=== PATIENT | female | born 1990 | race Caucasian/White ===

== ENCOUNTER 2017-01-09 07:57 | Inpatient (IN) | payer MEDICAID ==
[~2017-01-09] VITALS: Ht 160 cm; Wt 60.0 kg
[2017-01-09 08:04] VITALS: Ht 160 cm; Wt 60.0 kg
[2017-01-09 08:27] VITALS: BP 102/68; PULSE 81; RESP 16
[2017-01-09] MEDS ORDERED: LIDOCAINE 1% (MPF) 30 ML INJ INJ PRN (08:30)
[2017-01-09] MEDS ORDERED: OXYTOCIN 30 UNITS/LR 500 ML IV PRN (08:30)
[2017-01-09] MEDS ORDERED: IBUPROFEN 600 MG TAB PO PRN (08:30)
[2017-01-09] MEDS ORDERED: CARBOPROST 250 MCG INJ IM PRN (08:30)
[2017-01-09] MEDS ORDERED: MISOPROSTOL 200 MCG TAB PR PRN (08:30)
[2017-01-09] MEDS ORDERED: OXYTOCIN 30 UNITS/LR 500 ML IV SCH (08:30)
[2017-01-09] MEDS ORDERED: METHYLERGONOVINE 0.2 MG INJ IM PRN (08:30)
[2017-01-09] MEDS ORDERED: BUTORPHANOL 2 MG INJ IV PRN (08:30)
[2017-01-09] MEDS: LACTATED RINGER'S 1,000 ML IV SCH ×3 (08:32→20:55)
[2017-01-09] MEDS ORDERED: DINOPROSTONE 10 MG VAG SUPP VAG ONE (09:30)
[2017-01-09 09:45] LABS: ADD SCAN DIFF NO
[2017-01-09 09:53] LABS: BASOPHILS % 0.5 % (0.0-2.0); EOSINOPHILS # 0.1 10^3/ul (0.0-0.5); EOSINOPHILS % 0.8 % (0.0-7.0); HEMATOCRIT 39.8 % (37.0-47.0); HEMOGLOBIN 13.2 g/dl (12.0-16.0); LYMPHOCYTES # 1.5 10^3/ul (0.8-2.9); LYMPHOCYTES % 19.2 % (15.0-51.0); MEAN CORPUSCULAR HEMOGLOBIN 31.5 pg (29.0-33.0); MEAN CORPUSCULAR HGB CONC 33.2 g/dl (32.0-37.0); MEAN PLATELET VOLUME 13.1 fl (7.4-10.4); MONOCYTE # 0.5 10^3/ul (0.3-0.9); MONOCYTES % 5.7 % (0.0-11.0); NEUTROPHIL # 5.8 10^3/ul (1.6-7.5); NEUTROPHILS % 73.3 % (39.0-77.0); PLATELET COUNT 111 10^3/UL (140-415); RED BLOOD COUNT 4.19 10^6/ul (4.20-5.40); RED CELL DISTRIBUTION WIDTH 12.6 % (11.5-14.5); WHITE BLOOD COUNT 7.9 10^3/ul (4.8-10.8)
[2017-01-09] MEDS ORDERED: LACTATED RINGER'S 1,000 ML IV PRN (10:00)
[2017-01-09 10:07] LABS: INR 0.91; PROTIME 12.3 Sec (12.2-14.2)
[2017-01-09 10:08] LABS: PARTIAL THROMBOPLASTIN TIME 27.2 Sec (25.0-35.0)
--- NOTE | 2017-01-09 19:56 | HP ---
Date/Time of Note Date/Time of Note DATE: 01/09/17 TIME: 19:54 OB - History Hx of Present Free Text/Dictation admitted for induction of the labor at term Last Menstrual Period: Mar 31, 2017 Estimated Due Date: Jan 07, 2017 : 3 Para: 2 Care: Good Care Past Family/Social History * Past Medical, Surgical, Family and Obstetric Histories reviewed from chart. Blood Type: O+ Rubella: immune RPR/VDRL: Negative GBS Status: Negative HBsAG: Negative OB Admission Exam Vital Signs Vital Signs Vital Signs Date Time Temp Pulse Resp B/P Pulse Ox O2 Delivery O2 Flow Rate FiO2 01/09/17 08:27 98.2 81 16 102/68 Room Air Physical Exam HEENT: WNL Heart: Rhythm Normal Lungs: Clear, Equal Abdomen: WNL Extremities: Normal Reflexes: Normal Cervical Dilatation: None Effacement: 0% Station: -3 Membranes: Intact Heart Rate: 130's Accelerations: Accelerations Present Decelerations: No Decelerations Varibility: Moderate Contractions on Admission: None Last 72 hours Lab Results CBC & BMP 01/09/17 08:40 OB Assessment/Plan Reason for admission: induction of labor Other Assessment: term gestation Induction Method: per Misoprostol Protocol JULES FRANCES MD Jan 09, 2017 19:56
[2017-01-09] MEDS ORDERED: MINERAL OIL LIGHT 10 ML VIAL TOP ONE (20:00)
[2017-01-09] MEDS: OXYTOCIN 30 UNITS/LR 500 ML IV SCH ×2 (23:43→23:58)
--- NOTE | 2017-01-09 23:55 | LDN ---
Date/Time of Note Date/Time of Note DATE: 01/09/17 TIME: 23:51 Delivery Summary of a viable infan over intact perineum( done by Dr Amador) Weeks of Gestation 39+ Placenta Delivered: Spontaneously, Intact & Complete Meconium: none Episiotomy: No Anesthesia type: None Estimated blood loss: 100 Sponge & Needle done & correct: Yes All needle counts correct: Yes Any foreign bodies felt in the: No Problems: Infant Delivery Information Sex Sex: female Apgars 1 Minute: 9 5 Minute: 9 Suctioning Nose & mouth suctioned at loli: Yes Delee suction performed: Yes Umbilical Cord Umbilical cord with: 3 Vessels Cord presentations: no nuchal cord Cord Blood was obtained: Yes Mother & Baby Disposition Disposition Mom & Baby to Maternity; Good: Yes (mother and baby were recovered in good condition ) Mom transferred to: Other (maternity ) Baby to NICU: No JULES FRANCES MD Jan 09, 2017 23:55
[2017-01-09] MEDS ORDERED: LACTATED RINGER'S 1,000 ML IV* SCH (23:58)
[2017-01-09] MEDS ORDERED: DEXTROSE 5%-LR 1,000 ML IV SCH (23:58)
--- NOTE | 2017-01-09 23:58 | LDN ---
Date/Time of Note Date/Time of Note DATE: 01/09/17 TIME: 23:55 Delivery Summary 26 y/0 with SIUP at 40 2/7 wks delivered a female over intact perineum. Placenta Delivered: Spontaneously Meconium: none Episiotomy: No Anesthesia type: None Estimated blood loss: 100 Sponge & Needle done & correct: Yes All needle counts correct: Yes Any foreign bodies felt in the: No Problems: Infant Delivery Information Sex Infant Sex: female Apgars 1 Minute: 8 5 Minute: 9 Suctioning Nose & mouth suctioned at loli: Yes Umbilical Cord Umbilical cord with: 3 Vessels Cord presentations: no nuchal cord Cord Blood was obtained: Yes Mother & Baby Disposition Disposition Mom & Baby to Maternity; Good: Yes Baby to NICU: No HELENA UMANA Jan 09, 2017 23:58
[2017-01-10] MEDS ORDERED: ONDANSETRON 4 MG INJ IV PRN
[2017-01-10] MEDS ORDERED: DIPHENHYDRAMINE 50 MG INJ IV PRN
[2017-01-10] MEDS ORDERED: IBUPROFEN 600 MG TAB PO SCH
[2017-01-10 01:40] VITALS: BP 102/58; PULSE 84; RESP 18
[2017-01-10] MEDS ORDERED: OXYTOCIN 30 UNITS/LR 500 ML IV SCH (02:41)
[2017-01-10] MEDS ORDERED: DEXTROSE 5%-LR 1,000 ML IV SCH (02:41)
[2017-01-10] MEDS ORDERED: LACTATED RINGER'S 1,000 ML IV* SCH (02:41)
[2017-01-10] MEDS ORDERED: OXYTOCIN 30 UNITS/LR 500 ML IV PRN ×2 (03:00)
[2017-01-10] MEDS ORDERED: DIBUCAINE 1% 30 GM OINT PR PRN ×2 (03:00)
[2017-01-10] MEDS ORDERED: LANOLIN 7 GM TUBE TOP PRN ×2 (03:00)
[2017-01-10] MEDS ORDERED: ZOLPIDEM 5 MG TAB PO PRN ×2 (03:00)
[2017-01-10] MEDS ORDERED: METHYLERGONOVINE 0.2 MG INJ IM PRN ×2 (03:00)
[2017-01-10] MEDS ORDERED: SENNA/DOCUSATE NA (8.6MG/50MG) TAB PO PRN ×2 (03:00)
[2017-01-10] MEDS ORDERED: MISOPROSTOL 200 MCG TAB PR PRN ×2 (03:00)
[2017-01-10] MEDS ORDERED: ACETAMINOPHEN 325 MG TAB PO PRN ×2 (03:00)
[2017-01-10] MEDS ORDERED: CARBOPROST 250 MCG INJ IM PRN ×2 (03:00)
[2017-01-10] MEDS ORDERED: BENZOCAINE 20% 56 ML SPRAY TOP PRN ×2 (03:00)
[2017-01-10] MEDS ORDERED: OXYCODONE/ASPIRIN (4.88/325) TAB PO PRN ×3 (03:00)
[2017-01-10] MEDS ORDERED: WITCH HAZEL/GLYCERIN PAD PR PRN ×2 (03:00)
[2017-01-10 04:13] VITALS: BP 96/50; RESP 20
[2017-01-10] MEDS: IBUPROFEN 600 MG TAB PO SCH ×4 (05:58→23:53)
[2017-01-10 08:12] LABS: ADD SCAN DIFF NO
[2017-01-10 08:20] VITALS: BP 101/58; PULSE 76; RESP 18
[2017-01-10 08:34] LABS: BASOPHILS % 0.4 % (0.0-2.0); EOSINOPHILS # 0.1 10^3/ul (0.0-0.5); EOSINOPHILS % 0.7 % (0.0-7.0); HEMATOCRIT 35.4 % (37.0-47.0); HEMOGLOBIN 11.8 g/dl (12.0-16.0); LYMPHOCYTES # 1.8 10^3/ul (0.8-2.9); LYMPHOCYTES % 17.6 % (15.0-51.0); MEAN CORPUSCULAR HEMOGLOBIN 31.6 pg (29.0-33.0); MEAN CORPUSCULAR HGB CONC 33.3 g/dl (32.0-37.0); MEAN CORPUSCULAR VOLUME 94.9 fl (82.0-101.0); MEAN PLATELET VOLUME 12.7 fl (7.4-10.4); MONOCYTE # 0.7 10^3/ul (0.3-0.9); MONOCYTES % 6.8 % (0.0-11.0); NEUTROPHIL # 7.5 10^3/ul (1.6-7.5); NEUTROPHILS % 73.9 % (39.0-77.0); PLATELET COUNT 100 10^3/UL (140-415); RED BLOOD COUNT 3.73 10^6/ul (4.20-5.40); RED CELL DISTRIBUTION WIDTH 12.5 % (11.5-14.5); WHITE BLOOD COUNT 10.2 10^3/ul (4.8-10.8)
[2017-01-10 12:30] VITALS: BP 86/62; PULSE 82; RESP 18
[2017-01-10 16:00] VITALS: BP 104/72; PULSE 68; RESP 16
[2017-01-10 19:30] VITALS: BP 98/55; PULSE 85; RESP 20
--- NOTE | 2017-01-10 19:30 | DS ---
Date/Time of Note Date/Time of Note home next day DATE: 01/10/17 TIME: 19:29 Obstetrical Discharge Record Final Diagnosis Final Diagnosis: Term delivered Vaginal Delivery Obstetrical Delivery: Spontaneous Complications Augmentation: No Induction: Yes Condition on Discharge Physical Assessment Last Vitals: see nurses héctor Voiding: Yes Bowel Movement: Yes Breast: Soft, non-tender, Filling Fundus: Firm Abdomen and Incision: soft BS + Episiotomy: NA Calf Tenderness: No Patient Condition: Good JULES FRANCES MD Jan 10, 2017 19:29
[2017-01-10] MEDS ORDERED: IBUP-1542 PO (19:31)
--- NOTE | 2017-01-10 19:31 | PD.PPDC ---
[employer] Discharge Instruction Provider Information Physician Information 26 y/o female had vaginal delivery Diagnosis Final Diagnosis: S/P vaginal delivery Condition Patient Condition: Good Diet Diet: Resume Regular Diet Activity/Restrictions Activity: Normal Activity May Shower Restrictions: Nothing in the Vagina Return to Work or School: Feb 27, 2017 Follow-up Follow-up with Physician: 4, Week/Weeks (in clinic) Return to clinic for OB Instructions: Breast Tenderness Depression JULES FRANCES MD Jan 10, 2017 19:31
[2017-01-11 03:53] VITALS: BP 91/50; PULSE 65; RESP 20
[2017-01-11] MEDS: IBUPROFEN 600 MG TAB PO SCH ×2 (06:11→13:09)
[2017-01-11 08:30] VITALS: BP 103/77; PULSE 77; RESP 18
[2017-01-11] MEDS ORDERED: MEASLES,MUMPS,RUBELLA VACCINE INJ SC* ONE (09:00)
[2017-01-11] MEDS ORDERED: DIPHTH/TET/ACEL PERTUSS (ADULT) 0.5 ML VIAL IM* ONE (09:00)
[2017-01-12] MEDS ORDERED: DIPHTH/TET/ACEL PERTUSS (ADULT) 0.5 ML VIAL IM* ONE (09:00)
== END 2017-01-11 14:37 | disposition home or self-care (01) | DRG 775 ==
LOC: L-D 07:57 → PP1 01-10 01:22
PROVIDERS: ADMIT Obstetrics & Gynecology; ATTEND Obstetrics & Gynecology
PROC: 10E0XZZ Delivery of Products of Conception, External Approach (ICD-10-PCS; principal; 2017-01-09 08:00)
DX: O48.0 Post-term pregnancy (principal); Z37.0 Single live birth; Z3A.40 40 weeks gestation of pregnancy
CPT/HCPCS: 85025; 85610; 85730; 86592; 86900; 86901; J2590; J7120; J7121